=== PATIENT | male | born 1965 | race Caucasian/White ===

== ENCOUNTER 2017-11-25 20:19 | Emergency (ER) | payer MEDICAID ==
[~2017-11-25] VITALS: Ht 177.8 cm; Wt 90.7 kg
[2017-11-26] MEDS ORDERED: TETRACAINE HCL 0.5% OPTH(EYE) SOLN 4ML LEFTEYE ONE
[2017-11-26] MEDS ORDERED: HYDROcodone-ACET 10/325MG TAB PO ONE
[2017-11-26] MEDS ORDERED: NEOMYCIN-POLYM-GRAM OPTH(EYE) SOL 10ML LEFTEYE ONE (00:45)
[2017-11-26] MEDS ORDERED: NEOMYCIN-POLYM-GRAM OPTH(EYE) SOL 10ML ONE (00:51)
[2017-11-26 01:00] VITALS: BP 121/76
== END 2017-11-26 01:00 | disposition home or self-care (01) ==
LOC: ER 20:23
DX: H10.32 Unspecified acute conjunctivitis, left eye (principal); E78.5 Hyperlipidemia, unspecified